=== PATIENT | male | born 1985 ===

== ENCOUNTER 2025-05-11 10:50 | Day surgery (SDC) | payer OTHER ==
[~2025-05-11] VITALS: Ht 170.2 cm; Wt 73.7 kg
[2025-05-11] MEDS ORDERED: CeFAZolin Sodium 2,000 MG VIAL ONE (11:01)
[2025-05-11] MEDS ORDERED: ZINC15 (11:28)
[2025-05-11] MEDS ORDERED: VITAMIN D325 MC3 (11:29)
[2025-05-11] MEDS ORDERED: ASHWAGANDHA300 MG (11:29)
[2025-05-11] MEDS ORDERED: VITAMIN K240 MCG (11:32)
[2025-05-11] MEDS ORDERED: [UNRECOGNIZED DRUG - OTHER] (11:33)
[2025-05-11] MEDS ORDERED: FentaNYL Citrate 50 MCG/ML 2 ML Injection ONE (11:36)
[2025-05-11] MEDS ORDERED: Midazolam HCl 1MG / ML 2ML Vial ONE (11:59)
[2025-05-11] MEDS ORDERED: Bupivacaine 0.5% HCl 5 MG/ML 30MLVIAL INJ ONE ×2 (12:35)
[2025-05-11] MEDS ORDERED: Ondansetron HCl 2 MG / ML 2ML Vial ONE (15:08)
[2025-05-11] MEDS ORDERED: HYDROcodone 5-APAP 325 TAB ONE (16:17)
--- NOTE | 2025-05-11 16:26 | NUR ---
05/11/25 1626 Flor Davila PT IN RECLINER, TOLERATING WELL SCROTAL DRESSING CDI, C/O PAIN 6/10 ACHING CONSTRANT, MEDICATED PER ORDER. C/O EYE BURNING BEHIND EYES BILAT NO VISUAL DISTURBANCES SEEN BY ENEDINA AND DR LYNN WASHED EYE WITH SALINE DROPS BILAT -EFFECTIVE WITH IMMEDIATE RELIEF OF BURNING. VSS, RESTING IN RECLINER AND ALINA PO'S.
== END 2025-05-11 17:09 | disposition home or self-care (01) ==
LOC: ORSCSDS 10:50
PROVIDERS: Urology
PROC: 0VQ Male Reproductive System, Repair (ICD-10-PCS; principal; 2025-05-11 12:00)
DX: Z98.52 Vasectomy status (principal); Z31.0 Encounter for reversal of previous sterilization
CPT/HCPCS: 88302; A9270; J0690; J2250; J2405; J2704; J3010